=== PATIENT | male | born 1940 | race Two or more races ===

== ENCOUNTER → 2018-05-10 | Outpatient (CLI) | payer MEDICARE, OTHER ==
[~2018-05-10] VITALS: Ht 160 cm; Wt 66.5 kg
[~2018-05-10] MED LIST: TRAM50TA4 PO
[2018-05-10 10:15] VITALS: BP 149/70
== END | disposition home or self-care (01) ==
LOC: HBOWC 09:54
PROVIDERS: ATTEND Podiatrist
DX: L97.811 Non-pressure chronic ulcer of other part of right lower leg limited to breakdown of skin (principal)

== ENCOUNTER → 2018-05-17 | Outpatient (CLI) | payer MEDICARE, OTHER ==
[2018-05-17 09:55] VITALS: BP 141/82
== END | disposition home or self-care (01) ==
LOC: HBOWC 08:51
PROVIDERS: ATTEND Podiatrist
DX: L97.811 Non-pressure chronic ulcer of other part of right lower leg limited to breakdown of skin (principal)
CPT/HCPCS: 11042

== ENCOUNTER → 2018-05-24 | Outpatient (CLI) | payer MEDICARE, OTHER ==
[2018-05-24 11:29] VITALS: BP 116/75
== END | disposition home or self-care (01) ==
LOC: HBOWC 09:59
PROVIDERS: ATTEND Podiatrist
DX: L97.811 Non-pressure chronic ulcer of other part of right lower leg limited to breakdown of skin (principal)
CPT/HCPCS: 11042

== ENCOUNTER → 2018-05-31 | Outpatient (CLI) | payer MEDICARE, OTHER ==
[~2018-05-31] MED LIST changes: +AMOX1TAB16 PO
[2018-05-31 09:00] VITALS: BP 130/77
== END | disposition home or self-care (01) ==
LOC: HBOWC 08:40
PROVIDERS: ATTEND Podiatrist
DX: I83.018 Varicose veins of right lower extremity with ulcer other part of lower leg (principal); L97.812 Non-pressure chronic ulcer of other part of right lower leg with fat layer exposed; L90.9 Atrophic disorder of skin, unspecified
CPT/HCPCS: 11042

== ENCOUNTER → 2018-06-07 | Outpatient (CLI) | payer MEDICARE, OTHER ==
[2018-06-07 09:00] VITALS: BP 146/67
== END | disposition home or self-care (01) ==
LOC: HBOWC 08:42
PROVIDERS: ATTEND Podiatrist
DX: I83.018 Varicose veins of right lower extremity with ulcer other part of lower leg (principal); L97.812 Non-pressure chronic ulcer of other part of right lower leg with fat layer exposed; L90.9 Atrophic disorder of skin, unspecified
CPT/HCPCS: 11042

== ENCOUNTER → 2018-06-21 | Outpatient (CLI) | payer MEDICARE, OTHER ==
[2018-06-21 08:55] VITALS: BP 139/72
== END | disposition home or self-care (01) ==
LOC: HBOWC 08:43
PROVIDERS: ATTEND Podiatrist
DX: L97.312 Non-pressure chronic ulcer of right ankle with fat layer exposed (principal); I87.2 Venous insufficiency (chronic) (peripheral); L90.9 Atrophic disorder of skin, unspecified
CPT/HCPCS: 11042

== ENCOUNTER → 2018-07-05 | Outpatient (CLI) | payer MEDICARE, OTHER ==
[2018-07-05 09:01] VITALS: BP 117/59
== END | disposition home or self-care (01) ==
LOC: HBOWC 08:41
PROVIDERS: ATTEND Podiatrist
DX: L97.311 Non-pressure chronic ulcer of right ankle limited to breakdown of skin (principal); L97.811 Non-pressure chronic ulcer of other part of right lower leg limited to breakdown of skin; I87.2 Venous insufficiency (chronic) (peripheral); L90.9 Atrophic disorder of skin, unspecified
CPT/HCPCS: 97597

== ENCOUNTER → 2018-07-19 | Outpatient (CLI) | payer MEDICARE, OTHER ==
[2018-07-19 09:02] VITALS: BP 143/64
== END | disposition home or self-care (01) ==
LOC: HBOWC 08:45
PROVIDERS: ATTEND Podiatrist
DX: I83.013 Varicose veins of right lower extremity with ulcer of ankle (principal); L97.311 Non-pressure chronic ulcer of right ankle limited to breakdown of skin; I83.012 Varicose veins of right lower extremity with ulcer of calf; L97.211 Non-pressure chronic ulcer of right calf limited to breakdown of skin; L90.9 Atrophic disorder of skin, unspecified; I87.2 Venous insufficiency (chronic) (peripheral)
CPT/HCPCS: 97597

== ENCOUNTER → 2018-08-16 | Outpatient (CLI) | payer MEDICARE, OTHER ==
[2018-08-16 09:00] VITALS: BP 136/82
== END | disposition home or self-care (01) ==
LOC: HBOWC 08:49
PROVIDERS: ATTEND Podiatrist
DX: L97.818 Non-pressure chronic ulcer of other part of right lower leg with other specified severity (principal); I87.2 Venous insufficiency (chronic) (peripheral)